=== PATIENT | female | born 1985 | race Hispanic/Latino ===

== ENCOUNTER 2021-06-26 19:05 | Emergency (ER) | payer OTHER ==
[2021-06-26] MEDS ORDERED: Bacitracin 1 PK ONE (19:32)
== END 2021-06-26 19:47 | disposition home or self-care (01) ==
LOC: NAV ERS 19:05
DX: S01.21XA Laceration without foreign body of nose, initial encounter (principal); W22.8XXA Striking against or struck by other objects, initial encounter
CPT/HCPCS: 99282